=== PATIENT | female | born 1975 | race Caucasian/White ===

== ENCOUNTER 2020-10-18 12:09 | Emergency (ER) | payer BC ==
[~2020-10-18] VITALS: Ht 175.3 cm; Wt 79.5 kg
[2020-10-18 12:21] VITALS: TEMP 97.9
[2020-10-18 13:12] VITALS: BP 120/68; PULSE 60
== END 2020-10-18 13:15 | disposition home or self-care (01) ==
LOC: COL.ER 12:09
DX: S61.217A Laceration without foreign body of left little finger without damage to nail, initial encounter (principal); Z88.6 Allergy status to analgesic agent; W23.1XXA Caught, crushed, jammed, or pinched between stationary objects, initial encounter; Y92.59 Other trade areas as the place of occurrence of the external cause

== ENCOUNTER → 2024-06-01 | Outpatient (CLI) | payer BC | LOC: MC.RAD 13:32 | DX: Z12.31 Encounter for screening mammogram for malignant neoplasm of breast (principal) ==